=== PATIENT | male | born 1930 | race Caucasian/White ===

== ENCOUNTER 2016-09-20 17:10 | Emergency (ER) | payer MEDICARE, BC | END 2016-09-20 20:56 | disposition home or self-care (01) | DX: R60.0 Localized edema (principal); R03.0 Elevated blood-pressure reading, without diagnosis of hypertension; Z86.718 Personal history of other venous thrombosis and embolism; Z86.73 Personal history of transient ischemic attack (TIA), and cerebral infarction without residual deficits; Z79.82 Long term (current) use of aspirin; G40.909 Epilepsy, unspecified, not intractable, without status epilepticus ==

== ENCOUNTER 2016-09-23 11:53 | Outpatient (CLI) | payer MEDICARE, BC | END 2016-09-23 11:54 | disposition critical access hospital (66) | DX: R53.1 Weakness (principal) | CPT/HCPCS: A0425; A0429 ==

== ENCOUNTER 2016-09-23 12:10 | Inpatient (IN) | payer MEDICARE, BC ==
[2016-09-23] MEDS ORDERED: SODIUM CHLORIDE 0.9% 1,000 ML IV ONE (12:36)
[2016-09-23] MEDS ORDERED: MORPHINE 2 MG/ML SYRINGE IVP STA (14:03)
[2016-09-23] MEDS ORDERED: MORPHINE 2 MG/ML SYRINGE ONE (14:11)
[2016-09-23] MEDS ORDERED: ACETAMINOPHEN 325 MG TABLET PO PRN (16:03)
[2016-09-23] MEDS: MORPHINE 2 MG/ML SYRINGE IVP PRN (17:06)
[2016-09-23] MEDS: SODIUM CHLORIDE 0.9% 1,000 ML IV SCH (17:13)
[2016-09-23] MEDS ORDERED: DIGOXIN 500 MCG/2 ML AMP IVP SCH (20:46)
[2016-09-23] MEDS: PHENYTOIN ER 100 MG CAPSULE PO SCH (20:54)
[2016-09-23] MEDS: oxyCODONE 5 MG TABLET PO PRN (20:55)
[2016-09-23] MEDS: SODIUM CHLORIDE FLUSH 0.9% 10 ML SYRINGE IVP SCH (21:05)
[2016-09-23] MEDS: METOPROLOL 5 MG/5 ML VIAL IVP PRN (21:26)
[2016-09-23] MEDS ORDERED: METOPROLOL TARTRATE 25 MG TABLET PO SCH (22:00)
[2016-09-23] MEDS: METOPROLOL TARTRATE 25 MG TABLET PO SCH (22:05)
[2016-09-24] MEDS: MORPHINE 2 MG/ML SYRINGE IVP PRN ×4 (00:12→13:05)
[2016-09-24] MEDS: SODIUM CHLORIDE 0.9% 1,000 ML IV SCH ×3 (03:55→23:58)
[2016-09-24] MEDS: SODIUM CHLORIDE FLUSH 0.9% 10 ML SYRINGE IVP SCH ×3 (04:10→21:14)
[2016-09-24] MEDS: METOPROLOL 5 MG/5 ML VIAL IVP PRN ×4 (05:37→21:22)
[2016-09-24] MEDS: METOPROLOL TARTRATE 25 MG TABLET PO SCH ×2 (08:08→21:12)
[2016-09-24] MEDS: oxyCODONE 5 MG TABLET PO PRN ×2 (08:08→18:26)
[2016-09-24] MEDS: FINASTERIDE 5 MG TABLET PO SCH (08:09)
[2016-09-24] MEDS: POLYETHYLENE GLYCOL 3350 17 GM PACKET PO SCH (08:09)
[2016-09-24] MEDS: SULFACETAMIDE 10% OPHTH DROPS RIGHTEYE SCH ×3 (13:15→23:51)
[2016-09-24] MEDS: CLOTRIMAZOLE 1% CREAM 15 GM TUBE TOP SCH ×2 (13:15→21:14)
[2016-09-24] MEDS: NYSTATIN CREAM 15 GM TUBE TOP SCH (13:16)
[2016-09-24] MEDS: SODIUM CHLORIDE FLUSH 0.9% 10 ML SYRINGE IVP PRN (18:48)
[2016-09-24] MEDS: SENNA 8.6 MG TABLET PO SCH ×3 (19:50→23:54)
[2016-09-24] MEDS: PHENYTOIN ER 100 MG CAPSULE PO SCH (21:12)
[2016-09-25] MEDS: METOPROLOL 5 MG/5 ML VIAL IVP PRN ×3 (01:37→05:03)
[2016-09-25] MEDS: SODIUM CHLORIDE FLUSH 0.9% 10 ML SYRINGE IVP SCH ×3 (05:11→21:03)
[2016-09-25] MEDS: SULFACETAMIDE 10% OPHTH DROPS RIGHTEYE SCH ×3 (06:09→17:22)
[2016-09-25] MEDS: SENNA 8.6 MG TABLET PO SCH ×3 (06:10→13:55)
[2016-09-25] MEDS: POLYETHYLENE GLYCOL 3350 17 GM PACKET PO SCH (08:41)
[2016-09-25] MEDS: diltiaZEM 30 MG TABLET PO SCH ×3 (08:42→19:57)
[2016-09-25] MEDS: FINASTERIDE 5 MG TABLET PO SCH (08:42)
[2016-09-25] MEDS: DOCUSATE SODIUM 250 MG CAPSULE PO SCH (08:42)
[2016-09-25] MEDS: METOPROLOL TARTRATE 25 MG TABLET PO SCH ×2 (08:43→21:04)
[2016-09-25] MEDS: CLOTRIMAZOLE 1% CREAM 15 GM TUBE TOP SCH ×2 (08:47→21:10)
[2016-09-25] MEDS: NYSTATIN CREAM 15 GM TUBE TOP SCH (08:47)
[2016-09-25] MEDS: MORPHINE 2 MG/ML SYRINGE IVP PRN (10:09)
[2016-09-25] MEDS: SODIUM CHLORIDE FLUSH 0.9% 10 ML SYRINGE IVP PRN (10:09)
[2016-09-25] MEDS: SODIUM CHLORIDE 0.9% 1,000 ML IV SCH ×2 (10:14→21:02)
[2016-09-25] MEDS: PHENYTOIN ER 100 MG CAPSULE PO SCH (21:04)
[2016-09-25] MEDS ORDERED: MIN OIL/DIMETHICON/COCONUT OIL 92 GM TUBE TOP PRN (22:07)
[2016-09-25] MEDS: AMIODARONE 200 MG TABLET PO SCH (22:15)
[2016-09-26] MEDS: SULFACETAMIDE 10% OPHTH DROPS RIGHTEYE SCH ×5 (00:45→23:46)
[2016-09-26] MEDS: diltiaZEM 30 MG TABLET PO SCH ×3 (02:11→14:58)
[2016-09-26] MEDS: SODIUM CHLORIDE FLUSH 0.9% 10 ML SYRINGE IVP SCH ×3 (05:11→21:34)
[2016-09-26] MEDS: SODIUM CHLORIDE 0.9% 1,000 ML IV SCH ×2 (05:31→18:15)
[2016-09-26] MEDS: MORPHINE 2 MG/ML SYRINGE IVP PRN (05:31)
[2016-09-26] MEDS: DOCUSATE SODIUM 250 MG CAPSULE PO SCH (08:36)
[2016-09-26] MEDS: SENNA 8.6 MG TABLET PO SCH (08:36)
[2016-09-26] MEDS: POLYETHYLENE GLYCOL 3350 17 GM PACKET PO SCH (08:36)
[2016-09-26] MEDS: FINASTERIDE 5 MG TABLET PO SCH (11:03)
[2016-09-26] MEDS: oxyCODONE 5 MG TABLET PO PRN ×3 (11:03→21:33)
[2016-09-26] MEDS: AMIODARONE 200 MG TABLET PO SCH ×2 (11:05→21:33)
[2016-09-26] MEDS: CLOTRIMAZOLE 1% CREAM 15 GM TUBE TOP SCH ×2 (11:12→21:34)
[2016-09-26] MEDS: NYSTATIN CREAM 15 GM TUBE TOP SCH (11:13)
[2016-09-26] MEDS: PHENYTOIN ER 100 MG CAPSULE PO SCH (21:34)
[2016-09-27] MEDS: oxyCODONE 5 MG TABLET PO PRN ×2 (02:07→06:40)
[2016-09-27] MEDS: SODIUM CHLORIDE 0.9% 1,000 ML IV SCH ×2 (03:57→10:59)
[2016-09-27] MEDS: SULFACETAMIDE 10% OPHTH DROPS RIGHTEYE SCH ×2 (06:33→13:51)
[2016-09-27] MEDS: SODIUM CHLORIDE FLUSH 0.9% 10 ML SYRINGE IVP SCH ×2 (06:33→13:51)
[2016-09-27] MEDS ORDERED: CALCIUM CARBONATE CHEW 500 MG TABLET PO PRN (07:19)
[2016-09-27] MEDS ORDERED: ACETAMINOPHEN 325 MG TABLET PO PRN (07:19)
[2016-09-27] MEDS: POLYETHYLENE GLYCOL 3350 17 GM PACKET PO SCH (07:28)
[2016-09-27] MEDS: SENNA 8.6 MG TABLET PO SCH (07:28)
[2016-09-27] MEDS: DOCUSATE SODIUM 250 MG CAPSULE PO SCH (07:28)
[2016-09-27] MEDS ORDERED: POLYETHYLENE GLYCOL 3350 17 GM PACKET PO PRN (08:51)
[2016-09-27] MEDS ORDERED: SENNA 8.6 MG TABLET PO ONE (08:53)
[2016-09-27] MEDS: CLOTRIMAZOLE 1% CREAM 15 GM TUBE TOP SCH (10:58)
[2016-09-27] MEDS: AMIODARONE 200 MG TABLET PO SCH (10:58)
[2016-09-27] MEDS: NYSTATIN CREAM 15 GM TUBE TOP SCH (10:58)
[2016-09-27] MEDS: FINASTERIDE 5 MG TABLET PO SCH (10:59)
== END 2016-09-27 15:15 | DRG 682 ==
DX: N17.9 Acute kidney failure, unspecified (principal); G93.41 Metabolic encephalopathy; G93.40 Encephalopathy, unspecified; N13.8 Other obstructive and reflux uropathy; E87.5 Hyperkalemia; R60.1 Generalized edema; R31.0 Gross hematuria; H10.9 Unspecified conjunctivitis; I69.351 Hemiplegia and hemiparesis following cerebral infarction affecting right dominant side; I47.1 Supraventricular tachycardia; N40.1 Benign prostatic hyperplasia with lower urinary tract symptoms; G40.909 Epilepsy, unspecified, not intractable, without status epilepticus; I69.151 Hemiplegia and hemiparesis following nontraumatic intracerebral hemorrhage affecting right dominant side; I69.111 Memory deficit following nontraumatic intracerebral hemorrhage; I69.192 Facial weakness following nontraumatic intracerebral hemorrhage; I69.191 Dysphagia following nontraumatic intracerebral hemorrhage; I69.122 Dysarthria following nontraumatic intracerebral hemorrhage; R33.8 Other retention of urine; E78.5 Hyperlipidemia, unspecified; N39.498 Other specified urinary incontinence; Z86.718 Personal history of other venous thrombosis and embolism; Z79.01 Long term (current) use of anticoagulants; I69.319 Unspecified symptoms and signs involving cognitive functions following cerebral infarction; Z91.81 History of falling; Z87.891 Personal history of nicotine dependence; Z87.898 Personal history of other specified conditions; Z66 Do not resuscitate; B35.3 Tinea pedis; N48.1 Balanitis; I69.392 Facial weakness following cerebral infarction; I69.322 Dysarthria following cerebral infarction; I69.391 Dysphagia following cerebral infarction; R13.10 Dysphagia, unspecified; Z79.82 Long term (current) use of aspirin; Z79.899 Other long term (current) drug therapy

== ENCOUNTER 2016-09-27 15:22 | Outpatient (CLI) | payer MEDICARE, BC | END 2016-09-27 15:23 | DX: Z74.01 Bed confinement status (principal); G81.91 Hemiplegia, unspecified affecting right dominant side | CPT/HCPCS: A0425; A0428 ==

== ENCOUNTER 2016-09-29 14:03 | Outpatient (CLI) | payer MEDICARE, BC | END 2016-09-29 14:04 | disposition critical access hospital (66) | DX: R10.9 Unspecified abdominal pain (principal) | CPT/HCPCS: A0425; A0429 ==

== ENCOUNTER 2016-09-29 14:07 | Emergency (ER) | payer MEDICARE, BC | END 2016-09-29 18:44 | disposition home or self-care (01) | DX: N39.0 Urinary tract infection, site not specified (principal); R31.9 Hematuria, unspecified; J90 Pleural effusion, not elsewhere classified; I71.4 Abdominal aortic aneurysm, without rupture; Z86.73 Personal history of transient ischemic attack (TIA), and cerebral infarction without residual deficits; Z86.718 Personal history of other venous thrombosis and embolism; Z95.828 Presence of other vascular implants and grafts; E78.00 Pure hypercholesterolemia, unspecified; N40.0 Benign prostatic hyperplasia without lower urinary tract symptoms; Z79.82 Long term (current) use of aspirin ==

== ENCOUNTER 2016-10-19 15:10 | Outpatient (CLI) | payer BC, MEDICARE, OTHER | END 2016-10-19 15:11 | disposition home or self-care (01) | DX: N18.9 Chronic kidney disease, unspecified (principal); D64.9 Anemia, unspecified ==

== ENCOUNTER 2016-10-24 08:00 | Outpatient (CLI) | payer BC, MEDICARE, OTHER ==
[2016-10-24 11:48] LABS: BASOPHILS # (AUTO) 0.1 10^3/uL (0.0-0.1); BASOPHILS % (AUTO) 0.8 %; EOSINOPHILS # (AUTO) 0.4 10^3/uL (0.0-0.7); EOSINOPHILS % (AUTO) 5.9 %; HCT - HEMATOCRIT 36.9 % (42.0-52.0); HGB - HEMOGLOBIN 12.6 g/dL (14.0-18.0); LYMPHOCYTES # (AUTO) 0.7 10^3/uL (1.5-3.5); LYMPHOCYTES % (AUTO) 10.3 %; MEAN CORPUSCULAR HEMOGLOBIN 31.2 pg (27.0-31.0); MEAN CORPUSCULAR HGB CONC 34.1 g/dL (32.0-36.0); MEAN CORPUSCULAR VOLUME 91.5 fL (80.0-94.0); MEAN PLATELET VOLUME 9.6 fL (7.4-11.4); MONOCYTES # (AUTO) 0.4 10^3/uL (0.0-1.0); MONOCYTES % (AUTO) 5.9 %; NEUTROPHILS # (AUTO) 5.6 10^3/uL (1.5-6.6); NEUTROPHILS % (AUTO) 77.1 %; RED BLOOD COUNT 4.03 10^6/uL (4.70-6.10); RED CELL DISTRIBUTION WIDTH 13.6 % (12.0-15.0); UNCORRECTED WHITE BLOOD COUNT 7.3 x10^3/uL; WHITE BLOOD COUNT 7.3 x10^3/uL (4.8-10.8)
[2016-10-24 11:57] LABS: BILIRUBIN,TOTAL 0.5 mg/dL (0.2-1.0); CALCIUM 8.8 mg/dL (8.5-10.3); CREATININE 1.1 mg/dL (0.6-1.2); POTASSIUM 3.8 mmol/L (3.5-5.0); TOTAL PROTEIN 6.7 g/dL (6.7-8.2)
[2016-10-24 14:03] LABS: PSA FREE 32.05 ng/mL (0.16-2.81)
== END 2016-10-24 08:01 | disposition home or self-care (01) ==
LOC: LAB.R 08:00
PROVIDERS: ATTEND Family Medicine
DX: N40.1 Benign prostatic hyperplasia with lower urinary tract symptoms (principal); I67.9 Cerebrovascular disease, unspecified; N17.8 Other acute kidney failure; I50.9 Heart failure, unspecified
CPT/HCPCS: 80053; 83880; 84154; 85025

== ENCOUNTER 2016-11-08 12:50 | Outpatient (CLI) | payer MEDICARE, BC ==
[2016-11-08] MEDS ORDERED: GADOBUTROL 10 MMOL/10 ML VIAL IVP ONE (13:40)
--- NOTE | 2016-11-09 08:32 | MRI Report ---
EXAM: MRI LUMBAR SPINE WITHOUT AND WITH CONTRAST EXAM DATE: 11/08/2016 01:16 PM. CLINICAL HISTORY: LOWER EXTRIMITY Weakness, elevated PSA. COMPARISONS: CT abdomen pelvis 09/29/2016 TECHNIQUE: Multiplanar, multisequence T1-weighted and fluid-sensitive sequences of the lumbar spine f rom T12 to S1 before and after administration of intravenous contrast. IV contrast: Gadolinium. Other : None. 9 mL Gadavist FINDINGS: Spinal Cord: The conus terminates at L1-2. No signal abnormality in the visualized spinal cord. Alignment: Normal. No scoliosis or spondylolisthesis. Bone Marrow: Five qyj-zcy-zcefdkz lumbar vertebral bodies are assumed. The bone marrow is diffusely h eterogeneous, likely representing fatty replacement of the marrow. Schmorl' s nodes are seen at sever al levels: superior endplate of L1, superior endplate of T12 superior endplate of L2, superior and in ferior endplates of L3, and superior endplate of L4. No gross fractures or bone lesions. No bone laura ow edema or abnormal enhancement. Modic type II degenerative endplate changes are seen at L3-L4, L4-L 5, and L5-S1 levels. Disk Levels/Facets: T12-L1: No significant central canal or neuroforaminal narrowing. L1-L2: Mild disk height loss and desiccation. Mild diffuse disk bulge. Minimal bilateral facet arthro barb. Mild central canal narrowing. No neuroforaminal narrowing. L2-L3: Moderate disk height loss and desiccation. Moderate diffuse disk bulge. Moderate bilateral fac et arthropathy and ligamentum flavum thickening. Moderate to severe central canal narrowing with AP d iameter of 6 mm. Mild to moderate right and mild left neuroforaminal narrowing. Mild bilateral latera l recess narrowing with mass effect on bilateral traversing L3 nerves. L3-L4: Moderate disk height loss and desiccation. Large diffuse disk bulge and severe bladder facet a rthropathy and ligamentum flavum thickening. Severe central canal narrowing with AP diameter of 3 mm. Mild to moderate bilateral neuroforaminal narrowing. Moderate bilateral lateral recess narrowing wit h mass effect on bilateral traversing L4 nerves. L4-L5: Moderate disk height loss and desiccation. Moderate diffuse disk bulge with superimposed bilat eral lateral protrusions. Moderate to severe bilateral facet arthropathy and ligamentum flavum thicke michael. Moderate to severe central canal narrowing with AP diameter of 6 mm. Moderate to severe right a nd moderate left neuroforaminal narrowing. Additionally, the bilateral lateral protrusions likely hav ing mass effect on the exiting L4 nerves bilaterally at this level. L5-S1: Severe disk height loss and desiccation. Moderate diffuse disk bulge and severe bilateral face t arthropathy. Hcvq-ae-cwvjpnww central canal narrowing. Moderate right and moderate to severe left n euroforaminal narrowing. Moderate bilateral lateral recess narrowing with mass effect on bilateral tr aversing S1 nerves. Spinal Canal: No enhancing masses within the spinal canal. No epidural abscess. Musculature: Mild fatty atrophy of the paraspinal musculature. Other: There is aneurysmal dilatation of the distal abdominal aorta measuring 3.8 cm (series 701 imag e 17). Multiple renal cysts bilaterally. The visualized abdominopelvic cavity is otherwise unremarkab le. IMPRESSION: 1. No definite MRI evidence of metastatic disease in the visualized spine. No abnormal enhancement in the vertebral column, the cord, or the central canal. No evidence of diskitis osteomyelitis or epidu ral abscess/phlegmon. 2. Severe multilevel degenerative spondylosis, as detailed above and summarized below. The most signi ficant level is likely the L3-L4 level which demonstrates severe central canal narrowing with AP diam eter of 3 mm and csmd-hz-hwkthnmg bilateral neuroforaminal narrowing. Additionally there is moderate bilateral lateral recess narrowing at this level with mass effect compartment of traversing L4 nerves . 3. L1-L2 level demonstrates mild central canal narrowing. No neuroforaminal narrowing. 4. L2-3 level demonstrates moderate to severe central canal narrowing with AP diameter of 6 mm. Mild to moderate right and mild left neuroforaminal narrowing. Mild bilateral lateral recess narrowing wit h mass effect on bilateral traversing L3 nerves. 5. L4-L5 level demonstrates moderate to severe central canal narrowing with AP diameter of 6 mm. Mode rate to severe right and moderate left neuroforaminal narrowing. Additionally, the bilateral lateral protrusions likely having mass effect on the exiting L4 nerves bilaterally at this level. 6. L5-S1 level demonstrates mild to moderate central canal narrowing. Moderate right and moderate to severe left neuroforaminal narrowing. Moderate bilateral lateral recess narrowing with mass effect on bilateral traversing S1 nerves. 7. Aneurysmal dilatation of the distal abdominal aorta measuring 3.8 cm (series 701 image 17). Comment: The following findings are so common in adults without low back pain that while we report th eir presence, they must be interpreted with caution and in the context of the clinical situation. (Re armando King et al, Spine 2001) Prevalence of findings in patients without low back pain: Disk degeneration (any evidence): 92% Disk desiccation/T2 signal loss: 83% Disk height loss: 56% Disk bulge: 64% Disk protrusion: 32% Annular tear/high intensity zone: 38% [facility] Referring Provider Line: [phone] SITE ID: [id number]
== END 2016-11-08 12:51 | disposition home or self-care (01) ==
LOC: DI 12:50
PROVIDERS: ATTEND Family Medicine
DX: M47.896 Other spondylosis, lumbar region (principal); M51.36 Other intervertebral disc degeneration, lumbar region; M51.26 Other intervertebral disc displacement, lumbar region; M51.37 Other intervertebral disc degeneration, lumbosacral region; M47.897 Other spondylosis, lumbosacral region
CPT/HCPCS: 72158; A9585

== ENCOUNTER 2016-12-07 17:40 | Outpatient (CLI) | payer MEDICARE, BC ==
[2016-12-07 22:43] LABS: BASOPHILS # (AUTO) 0.1 10^3/uL (0.0-0.1); BASOPHILS % (AUTO) 0.9 %; EOSINOPHILS # (AUTO) 0.4 10^3/uL (0.0-0.7); EOSINOPHILS % (AUTO) 3.5 %; HCT - HEMATOCRIT 40.8 % (42.0-52.0); HGB - HEMOGLOBIN 13.9 g/dL (14.0-18.0); LYMPHOCYTES # (AUTO) 0.8 10^3/uL (1.5-3.5); LYMPHOCYTES % (AUTO) 7.3 %; MEAN CORPUSCULAR HEMOGLOBIN 30.7 pg (27.0-31.0); MEAN CORPUSCULAR VOLUME 90.4 fL (80.0-94.0); MEAN PLATELET VOLUME 9.1 fL (7.4-11.4); MONOCYTES # (AUTO) 0.8 10^3/uL (0.0-1.0); MONOCYTES % (AUTO) 6.9 %; NEUTROPHILS # (AUTO) 9.4 10^3/uL (1.5-6.6); NEUTROPHILS % (AUTO) 81.4 %; RED BLOOD COUNT 4.51 10^6/uL (4.70-6.10); UNCORRECTED WHITE BLOOD COUNT 11.6 x10^3/uL; WHITE BLOOD COUNT 11.6 x10^3/uL (4.8-10.8)
== END 2016-12-07 17:41 ==
LOC: LAB.R 17:40
DX: D64.9 Anemia, unspecified (principal)
CPT/HCPCS: 85025

== ENCOUNTER 2016-12-12 10:00 | Outpatient (CLI) | payer MEDICARE, BC ==
[2016-12-12 13:10] LABS: BILIRUBIN,TOTAL 0.6 mg/dL (0.2-1.0); BUN - BLOOD UREA NITROGEN 17 mg/dL (6-20); CALCIUM 8.7 mg/dL (8.5-10.3); CARBON DIOXIDE - CO2 24 mmol/L (21-32); CHLORIDE 105 mmol/L (101-111); CREATININE 1.1 mg/dL (0.6-1.2); GFR - MDRD 64 (>89); GLUCOSE 142 mg/dL (70-100); POTASSIUM 3.7 mmol/L (3.5-5.0); SODIUM 135 mmol/L (135-145); TOTAL PROTEIN 6.3 g/dL (6.7-8.2)
== END 2016-12-12 10:01 | disposition home or self-care (01) ==
LOC: LAB.R 10:00
DX: N17.8 Other acute kidney failure (principal); R56.9 Unspecified convulsions
CPT/HCPCS: 80053; 80185

== ENCOUNTER 2016-12-21 08:00 | Outpatient (CLI) | payer MEDICARE, BC ==
[2016-12-22 16:12] LABS: CREATININE 1.2 mg/dL (0.6-1.2)
== END 2016-12-21 08:01 | disposition home or self-care (01) ==
LOC: LAB.R 08:00
DX: R97.20 Elevated prostate specific antigen [PSA] (principal)
CPT/HCPCS: 82565; 84153; 84520

== ENCOUNTER 2017-01-31 08:00 | Outpatient (CLI) | payer MEDICARE, BC | END 2017-01-31 08:01 | disposition home or self-care (01) | LOC: LAB.R 08:00 | PROVIDERS: ATTEND Family Medicine | DX: N39.0 Urinary tract infection, site not specified (principal) | CPT/HCPCS: 81001; 81003 ==

== ENCOUNTER 2017-02-14 15:16 | Outpatient (CLI) | payer MEDICARE, BC | END 2017-02-14 15:17 | disposition hospice, home (50) | LOC: EMS 15:16 | PROVIDERS: ATTEND Surgery | DX: C61 Malignant neoplasm of prostate (principal) | CPT/HCPCS: A0425; A0428 ==

== ENCOUNTER 2017-02-17 13:40 | Outpatient (CLI) | payer MEDICARE, BC | END 2017-02-17 13:41 | disposition EMS.NT | LOC: EMS 13:40 | PROVIDERS: ATTEND Surgery | DX: Z03.89 Encounter for observation for other suspected diseases and conditions ruled out (principal); W24.0XXA Contact with lifting devices, not elsewhere classified, initial encounter ==

== ENCOUNTER 2017-04-10 13:46 | Outpatient (CLI) | payer OTHER | END 2017-04-10 13:47 | disposition hospice, inpatient (51) | LOC: EMS 13:46 | PROVIDERS: ATTEND Surgery | DX: C61 Malignant neoplasm of prostate (principal) ==

== ENCOUNTER 2017-04-14 10:39 | Outpatient (CLI) | payer BC, MEDICARE, OTHER | END 2017-04-14 10:40 | disposition critical access hospital (66) | LOC: EMS 10:39 | PROVIDERS: ATTEND Surgery | DX: S01.01XA Laceration without foreign body of scalp, initial encounter (principal); W05.0XXA Fall from non-moving wheelchair, initial encounter; Y92.129 Unspecified place in nursing home as the place of occurrence of the external cause | CPT/HCPCS: A0425; A0429 ==

== ENCOUNTER 2017-08-22 08:00 | Outpatient (CLI) | payer OTHER ==
[2017-08-22 12:01] LABS: ALBUMIN 3.2 g/dL (3.2-5.5); ALBUMIN/GLOBULIN RATIO 1.1 (1.0-2.2); BILIRUBIN,TOTAL 0.6 mg/dL (0.2-1.0); CALCIUM 9.6 mg/dL (8.5-10.3); CREATININE 0.9 mg/dL (0.6-1.2); TOTAL PROTEIN 6.2 g/dL (6.7-8.2)
== END 2017-08-22 08:01 | disposition home or self-care (01) ==
LOC: LAB.R 08:00
DX: I67.9 Cerebrovascular disease, unspecified (principal); C61 Malignant neoplasm of prostate
CPT/HCPCS: 80053; 84153

== ENCOUNTER 2017-09-19 08:14 | Day surgery (SDC) | payer BC, MEDICARE, OTHER ==
[2017-09-19] MEDS ORDERED: LACTATED RINGERS 1,000 ML IV ONE (08:15)
[2017-09-19] MEDS ORDERED: ceFAZolin 2 GM/50 ML 2 GM/50 ML BAG IV ONE (08:17)
[2017-09-19] MEDS ORDERED: BUPIVACAINE 0.5% PF 10 ML VIAL ONE (09:47)
--- NOTE | 2017-09-19 10:57 | SURGERY HX AND PHYSICAL(T) ---
Surgical History & Physical - Chief Complaint/HPI Chief Complaint: Neurogenic bladder History of Present Illness: This very pleasant but somewhat unfortunate 87-year- old gentleman, resident - PMH/PSH/Social Hx Does the pt have a hx of MRSA?: No Neurological History: CVA, Head injury, Seizure disorder Cardiovascular: Hypertension, High cholesterol, Peripheral Vascular Disease, Deep vein thrombosis, Other Skin: Psoriasis Endocrine/Autoimmune: None Gastrointestinal: Chronic constipation Urinary: Benign prostate hypertrophy, Retention, Incontinence, Chronic bladder infection, Indwelling catheter Musculoskeletal: Fatigue, Other Psychiatric: Anxiety Smoking Status: Never smoker Does the pt drink ETOH?: Yes Frequency: Occasional Does the pt have substance abuse?: No - Home Meds and Allergies Home Medications: Acetaminophen 2 tab PO Q4HR PRN 09/19/17 Albuterol Sulfate [Proair Hfa Inhaler] 1 - 2 puffs INH QID PRN 09/19/17 Hyoscyamine Sulfate 2 tab PO QID PRN 09/19/17 L. Acidophilus/L. Rhamnosus [Probiotic 15 Billion Cell Cap] 2 each PO DAILY 09/03 LORazepam [Ativan] 0.5 mg PO Q6H PRN 09/19/17 Morphine Sulfate [Morphine Sulf Oral (Roxanol)] 0.25 - 0.5 ml PO Q4HR PRN Propylene Glycol/Peg 400 [Lubricant Eye Drops] 1 drops OP QID 09/19/17 Allergies/Adverse Reactions: Allergies Allergy/AdvReac Type Severity Reaction Status Date / Time neomycin [Neomycin] Allergy Intermediate Rash Verified 09/29/16 14:18 erythromycin base Allergy Unknown Verified 09/19/17 08:43 lisinopril Allergy Unknown Verified 09/19/17 08:43 Penicillins Allergy Unknown Verified 09/19/17 08:43 - Vital Signs Temperature: 36.0 C Respiratory Rate: 16 O2 Saturation: 97 Weight (kg): 79.38 kg Height: 1.78 m - Physical Exam General Appearance: positive: No acute distress Eyes Bilatera: positive: No lid inflammation, Conjunctivae nml, No scleral icterus ENT: positive: Dry mucous membranes (Patient is asking for a drink of water.), Other (Dentition somewhat poor.) Neck: positive: Trachea midline Respiratory: positive: Chest non-tender, No respiratory distress, Breath sounds nml (But distant.) Cardiovascular: positive: Regular rate & rhythm Comments/Other: The abdominal exam donation is benign. There are normal active bowel sounds and no palpable hepatosplenomegaly. - Patient Review Patient Review: Problems were reviewed with the patient during this visit. Medications were reviewed with the patient during this visit. Allergies were reviewed this patient during this visit. Pertinent Tests Reviewed: All pertitent test for this patient were reviewed. - Assessment & Plan Assessment and Plan: Neurogenic bladder necessitating chronic catheterization. The Stewart has been problematic for him. The plan then is for a placement of a suprapubic catheter. The indications, procedure, alternatives including no surgery, and complications including but not limited to infection, bleeding, and were fully explained to the patient, his , and son and verbal and written consent was obtained. The signed the consent form. I had her do this even though I explained this to the patient. The plan is to perform the procedure and send him back to [facility].
[2017-09-19] MEDS ORDERED: BUPIVACAINE 0.5% PF 10 ML VIAL SUBQ ONE (11:38)
[2017-09-19] MEDS ORDERED: MIDAZOLAM 2 MG/2 ML VIAL IVP ONE (11:45)
[2017-09-19] MEDS ORDERED: KETAMINE 500 MG/10 ML VIAL IVP ONE (11:45)
[2017-09-19] MEDS ORDERED: METOPROLOL 5 MG/5 ML VIAL IVP ONE (11:45)
--- NOTE | 2017-09-19 12:07 | OPERATIVE REPORT ---
Operative Report - General Procedure Date: 09/19/17 Planned Procedure: Placement suprapubic catheter Pre-Op Diagnosis: Neurogenic bladder Procedure Performed: Placement of suprapubic cathether Post Op Diagnosis: Same - Procedure Note Primary Surgeon: Miguel Abdi MD Anesthesia Provider: Maurice Velasco CRNA Anesthesia Technique: Local (7 mL 1/2% marcaine), MAC IV Fluids (mL): 400 Estimated Blood Loss (mL): 1 Complications: None. - Other Other Information/Narrative: OPERATIVE DESCRIPTION/REPORT: After verbal and written informed consent was obtained detailing the risks of infection, bleeding requiring transfusion with its risks, nerve injury, and , and after I met with the patient confirming the surgery and the site of the surgery and after initialing the site of the surgery with a surgical marker , the patient was brought to the operative suite and placed supine on the operating table. Great care was taken to avoid pressure points to prevent pressure necrosis or nerve injury. Monitoring devices were applied along with TEDs and pneumatic compressive stockings (to prevent DVT). The patient received preoperative antibiotics for surgical prophylaxis. Maurice Velasco CRNA sedated and anesthetized the patient for the entire procedure. The patient was prepped and draped in the usual sterile manner. With the patient draped my initials were clearly visible. A "time in" then confirmed that the patient was identified with 3 identifiers (name, date and medical record number), the history and physical was in the chart, the signed consent confirming the procedure was in the chart, the patient was in the correct position, the aforementioned prophylactic measures were in place or given, we had the correct personnel and equipment to complete the procedure and that anesthesia, surgery and nursing were given an opportunity to express any concerns. With the agreement of everyone in the room, we proceeded with the operation. After the patient was appropriately sedated, the patient's bladder was filled with sterile water and the Stewart was clamped to retain the fluid in his bladder. I measured 3 cm above his pubic bone anesthetized the area with 1/2% marcaine and inserted a finder needle which returned urine. An 11 blade scalpel was used to make a plunge incision and this was widened with a So. Through this opening was inserted the suprapubic device, under control, into the bladder with return of urine. The stylet was removed and a 16 Fr. Stewart was inserted into the sheath and the balloon inflated with 10 mL of sterile saline. The sheath was then torn away leaving the Stewart in place. The Stewart was then secured to the skin with a 3-0 Nylon which was Jac sandaled about the Stewart. A dressing was applied. At this point a time out was performed that confirmed that all the counts were correct, the procedure that was performed, the blood loss, the IV fluids administered, and the patients condition. Having tolerated the procedure well, the patient was subsequently taken to recovery room in good and stable condition.
[2017-09-19 13:25] VITALS: BP 143/79
== END 2017-09-19 08:15 | disposition home or self-care (01) ==
LOC: SDS 08:14
PROVIDERS: ATTEND Surgery
PROC: 0T9B00Z Drainage of Bladder with Drainage Device, Open Approach (ICD-10-PCS; principal; 2017-09-19 09:30)
DX: N31.9 Neuromuscular dysfunction of bladder, unspecified (principal); I10 Essential (primary) hypertension; Z86.718 Personal history of other venous thrombosis and embolism; I73.9 Peripheral vascular disease, unspecified; N40.1 Benign prostatic hyperplasia with lower urinary tract symptoms; R33.8 Other retention of urine
CPT/HCPCS: 51040; J0690; J7120

== ENCOUNTER 2017-10-03 08:00 | Outpatient (CLI) | payer MEDICARE, BC | END 2017-10-03 08:01 | disposition home or self-care (01) | LOC: LAB.R 08:00 | PROVIDERS: ATTEND Family Medicine | DX: N39.0 Urinary tract infection, site not specified (principal) | CPT/HCPCS: 87086 ==

== ENCOUNTER 2017-10-10 09:32 | Outpatient (CLI) | payer MEDICARE, BC | END 2017-10-10 09:33 | disposition critical access hospital (66) | LOC: EMS 09:32 | PROVIDERS: ATTEND Surgery | DX: Z76.89 Persons encountering health services in other specified circumstances (principal) | CPT/HCPCS: A0425; A0428 ==

== ENCOUNTER 2017-10-10 09:41 | Outpatient (CLI) | payer MEDICARE, BC ==
[2017-10-10] MEDS ORDERED: IOTHALAMATE MEGLUMINE 250 ML VIAL UR ONE ×2 (11:15→11:17)
--- NOTE | 2017-10-10 12:59 | XRAY Report ---
CYSTOGRAM VIA INDWELLING CATHETER: 10/10/2017 CLINICAL INDICATION: Nonfunctioning suprapubic catheter, check position, indwelling Jackson catheter. FINDINGS: Initial painter spring view of the abdomen demonstrates two catheters terminating in the urinary bladder. Previous fracture fixation is noted. Initial attempts at injecting the suprapubic catheter were unsuccessful. The patient's indwelling Jackson catheter was then injected, demonstrating its location within the urinary bladder, and while some contrast was left in the urinary bladder, the balloon of the suprapubic catheter was partially inflated, demonstrating its location. In conjunction with Dr. Abdi, the suprapubic catheter was then removed, and Dr. Abdi inserted a new suprapubic catheter. The new suprapubic catheter initially demonstrated urine return, and so the balloon was inflated, and intraluminal position was confirmed with contrast injection. The indwelling Jackson catheter was then removed. The patient tolerated the procedure well. No immediate complications. No extraluminal contrast was visualized during the course of the examination. IMPRESSION: DOCUMENTATION OF OCCLUSION OF SUPRAPUBIC CATHETER. DOCUMENTATION OF REPLACEMENT, WITH CATHETER WITHIN THE BLADDER LUMEN AT THE COMPLETION OF THE PROCEDURE, AND REMOVAL OF THE INDWELLING PENILE JACKSON CATHETER. FLUOROSCOPY TIME: Three minutes 17 seconds; 8 spot images obtained. TD: 10/10/2017 12:58
== END 2017-10-10 09:42 | disposition home or self-care (01) ==
LOC: DI 09:41
PROVIDERS: ATTEND Surgery
DX: C61 Malignant neoplasm of prostate (principal); R33.8 Other retention of urine; T83.090A Other mechanical complication of cystostomy catheter, initial encounter; Y84.6 Urinary catheterization as the cause of abnormal reaction of the patient, or of later complication, without mention of misadventure at the time of the procedure
CPT/HCPCS: 74430

== ENCOUNTER 2017-10-10 11:23 | Outpatient (CLI) | payer MEDICARE, BC | END 2017-10-10 11:24 | LOC: EMS 11:23 | PROVIDERS: ATTEND Surgery | DX: Z76.89 Persons encountering health services in other specified circumstances (principal) ==